=== PATIENT | female | born 1975 | race African-American/Black ===

== ENCOUNTER 2017-12-27 04:19 | Emergency (ER) | payer BC ==
[2017-12-27] MEDS ORDERED: HYDROcodone/Acetaminophen 5/325 mg Tablet ONE (04:34)
[2017-12-27] MEDS ORDERED: Morphine 4 MG/ML VIAL ONE (06:03)
[2017-12-27] MEDS ORDERED: Ondansetron HCl/PF 4 MG/2 ML Vial ONE (06:08)
== END 2017-12-27 07:03 | disposition short-term general hospital (02) ==
LOC: ERS 04:19
DX: N12 Tubulo-interstitial nephritis, not specified as acute or chronic (principal); B20 Human immunodeficiency virus [HIV] disease; F41.9 Anxiety disorder, unspecified; Z87.442 Personal history of urinary calculi; Z79.899 Other long term (current) drug therapy
CPT/HCPCS: 93005; 96374; 96375; J2270; J2405

== ENCOUNTER 2019-11-30 01:59 | Emergency (ER) | payer BC, MEDICARE ==
[2019-11-30 02:36] LABS: Hemoglobin 13.3 g/dL (12.0-16.0); Mean Corpuscular HGB CONC 32.7 g/dL (32.0-36.0); Mean Corpuscular Hemoglobin 28.9 pg (27.0-31.0); Mean Corpuscular Volume 88.2 fL (78.0-98.0); Mean Platelet Volume 7.8 fL (7.4-10.4); Platelet Count 212 thou/uL (130-400); RBC Distribution Width 12.8 % (11.5-14.5); Red Blood Cell (RBC) Count 4.61 mill/uL (4.20-5.40); White Blood Cell (WBC) Count 9.3 thou/uL (4.8-10.8)
[2019-11-30 02:50] LABS: ALT (SGPT) 19 U/L (8-55); AST (SGOT) 20 U/L (5-34); Albumin 4.2 g/dL (3.5-5.0); Alkaline Phosphatase 64 U/L (40-110); Anion Gap 15 mmol/L (10-20); BUN (Urea Nitrogen) 13 mg/dL (7.0-18.7); Bilirubin, Total 0.3 mg/dL (0.2-1.2); Calc. Creatinine Clearance 0 mL/min (70-130); Calcium 9.3 mg/dL (7.8-10.44); Carbon Dioxide 19 mmol/L (22-29); Chloride 106 mmol/L (98-107); Estimated GFR-MDRD 74; Globulin 4.7 g/dL (2.4-3.5); Glucose 102 mg/dL (70-105); Potassium 3.5 mmol/L (3.5-5.1); Protein, Total 8.9 g/dL (6.0-8.3); Sodium 136 mmol/L (136-145)
[2019-11-30 02:51] LABS: Band 6 % (5-11); Lymphocytes 26 % (21-51); MDiff Complete? YES; Monocytes 5 % (0-10); Neutrophil 63 % (42-75); Platelet Morphology Comment Appears Adequate
[2019-11-30 02:58] LABS: BHCG - Serum Negative (NEGATIVE); Pregs Control Background? CLEAR/WHITE (CLR/WHITE); Pregs Control Bar Appear? YES (CONTROL BAR)
--- NOTE | 2019-11-30 08:19 | CT ---
PRELIMINARY REPORT/[facility]/EMERGENCY AFTER HOURS PROCEDURE: EXAM: CT Head Without Intravenous Contrast. CLINICAL HISTORY: S/P SEIZURE TECHNIQUE: Axial computed tomography images of the head/brain without intravenous contrast. COMPARISON: None provided. FINDINGS: BRAIN: No acute intraparenchymal hemorrhage. No mass lesion. No CT evidence for acute territorial inf arct. No midline shift or extra-axial collection. VENTRICLES: No hydrocephalus. ORBITS: The orbits are unremarkable. SINUSES AND MASTOIDS: The paranasal sinuses and mastoid air cells are clear. SOFT TISSUES: No significant facial or scalp soft tissue swelling evident. No radiopaque foreign body is seen. BONES: No acute skull fracture. IMPRESSION: No acute intracranial abnormality. ELECTRONICALLY SIGNED BY: Erik Garcia MD Nov 30, 2019 3:00:14 AM CDT FINAL REPORT EMERGENT AFTER HOURS NONCONTRAST CT HEAD: HISTORY: Seizure. COMPARISON: 06/24/2018. IMPRESSION: 1. No acute intracranial abnormalities demonstrated. CT head is stable compared to prior study in 201 9. 2. Findings are in agreement with preliminary report by [facility]. Transcribed Date/Time: 11/30/2019 8:56 AM
--- NOTE | 2019-11-30 08:22 | CT ---
PRELIMINARY REPORT/[facility]/EMERGENCY AFTER HOURS PROCEDURE: EXAM: CT CERVICAL SPINE WO CON HISTORY: S/P SEIZURE; NECK PAIN COMPARISON: None FINDINGS: No acute displaced fracture or subluxation of the cervical spine. Straightening of the norm al cervical lordosis. Mild degenerative changes of the mid cervical spine. No acute abnormality of the soft tissues. IMPRESSION: No acute osseous abnormality of cervical spine. Straightening of the normal cervical lord osis, which can be seen with muscle spasm or immobilization. ELECTRONICALLY SIGNED BY: Erik Garcia MD Nov 30, 2019 3:03:06 AM CDT FINAL REPORT EMERGENT AFTER HOURS NONCONTRAST CT CERVICAL SPINE: HISTORY: Neck pain after seizure. COMPARISON: 06/24/2017 TECHNIQUE: Contiguous axial CT images are obtained through the cervical spine from skull base to the T2 level. S agittal and coronal reformatted images are provided. IMPRESSION: 1. Straightening of the normal cervical lordotic curvature which may be related to muscle spasm or po sitioning. 2. Stable mild degenerative changes in the cervical spine. 3. No fracture or subluxation involving the cervical spine. 4. CT cervical spine is stable compared to prior study in 2019. 5. Findings are in agreement with preliminary report by [facility]. Transcribed Date/Time: 11/30/2019 8:59 AM
== END 2019-11-30 03:19 | disposition home or self-care (01) ==
LOC: ERS 01:59
DX: R56.9 Unspecified convulsions (principal); B20 Human immunodeficiency virus [HIV] disease; F41.9 Anxiety disorder, unspecified; F17.210 Nicotine dependence, cigarettes, uncomplicated; Z79.899 Other long term (current) drug therapy
CPT/HCPCS: 36415; 36416; 70450; 72125; 80053; 80185; 84703; 85025

== ENCOUNTER 2023-04-08 17:55 | Inpatient (IN) | payer OTHER, SELFPAY ==
[2023-04-08] MEDS ORDERED: HYDROcodone/Acetaminophen 10/325 mg Tablet PO PRN (20:06)
[2023-04-08] MEDS ORDERED: Sodium Chloride 0.9% 1,000 ML IV SCH (20:15)
[2023-04-08 20:51] LABS: Hematocrit 31.9 % (36.0-47.0); Hemoglobin 10.2 g/dL (12.0-16.0)
[2023-04-08] MEDS ORDERED: cefTRIAXone\\ROCEPHIN 2 GM in Sodium Chloride 0.9% 100 ML IVPB SCH (21:00)
[2023-04-08] MEDS: Mirtazapine 30 MG TAB PO SCH (21:56)
[2023-04-08] MEDS: ALPRAZolam 1 MG TAB PO SCH (21:56)
[2023-04-08] MEDS: Pantoprazole 40 MG VIAL IVP SCH (21:56)
[2023-04-08] MEDS: Sodium Chloride 0.9% 1,000 ML IV SCH (22:03)
[2023-04-09 00:20] VITALS: BMI 23.0
[2023-04-09 02:58] LABS: Hematocrit 29.3 % (36.0-47.0); Hemoglobin 9.3 g/dL (12.0-16.0)
[2023-04-09] MEDS: Sodium Chloride 0.9% 1,000 ML IV SCH ×3 (05:39→20:40)
[2023-04-09 08:26] LABS: Hematocrit 30.4 % (36.0-47.0); Manual Diff?? YES; Mean Corpuscular HGB CONC 32.9 g/dL (32.0-36.0); Mean Corpuscular Hemoglobin 29.1 pg (27.0-31.0); Mean Corpuscular Volume 88.4 fl (78.0-98.0); Mean Platelet Volume 10.2 fL (7.4-10.4); Platelet Count 138 10x3/uL (130-400); RBC Distribution Width 14.5 % (11.5-14.5); Red Blood Cell (RBC) Count 3.44 mill/uL (4.20-5.40); White Blood Cell (WBC) Count 5.3 10x3/uL (4.8-10.8)
[2023-04-09 08:38] LABS: Delete Auto Diff?? YES
[2023-04-09 08:50] LABS: Phosphorus 2.9 mg/dL (2.3-4.7)
[2023-04-09 08:56] LABS: ALT (SGPT) 45 U/L (8-55); AST (SGOT) 72 U/L (5-34); Albumin 3.3 g/dL (3.5-5.0); Alkaline Phosphatase 186 U/L (40-110); Anion Gap 12 mmol/L (10-20); BUN (Urea Nitrogen) 13 mg/dL (7.0-18.7); Bilirubin, Total 0.3 mg/dL (0.2-1.2); Calc. Creatinine Clearance 75 mL/min (70-130); Calcium 8.4 mg/dL (7.8-10.44); Carbon Dioxide 21 mmol/L (22-29); Chloride 113 mmol/L (98-107); Estimated GFR 71; Globulin 4.7 g/dL (2.4-3.5); Glucose 91 mg/dL (70-105); Magnesium 1.9 mg/dL (1.6-2.6); Potassium 3.7 mmol/L (3.5-5.1); Sodium 142 mmol/L (136-145)
[2023-04-09] MEDS ORDERED: FLU VACC QS2023-24(6MOS UP)/PF 60 MCG/0.5 ML SYRINGE IM ONE (09:00)
[2023-04-09 09:25] LABS: Band 8 % (5-11); Elliptocytes SLIGHT = 2-5 cells HPF (0-1); Eosinophils 1 % (0-10); Large Platelets 9.9 % (0-5); Lymphocytes 4 % (21-51); Monocytes 5 % (0-10); Neutrophil 82 % (42-75); Platelet Adequacy Comment Platelets Normal; Poikilocytosis SLIGHT = 6-15 cells HPF (0-5); RBC Morphology Within Normal Limits; Total Cell Count 101
[2023-04-09] MEDS ORDERED: ALPRAZolam 1 MG TAB PO SCH (09:30)
[2023-04-09] MEDS: Citalopram 20 MG TAB PO SCH (09:58)
[2023-04-09] MEDS: ALPRAZolam 1 MG TAB PO SCH ×2 (10:02→20:40)
[2023-04-09] MEDS: Morphine 4 MG/ML VIAL SLOW IVP PRN ×2 (10:40→19:24)
[2023-04-09] MEDS: Pantoprazole 40 MG VIAL IVP SCH ×2 (10:40→20:40)
[2023-04-09 17:07] LABS: Hematocrit 29.7 % (36.0-47.0); Hemoglobin 9.6 g/dL (12.0-16.0)
[2023-04-09] MEDS: Mirtazapine 30 MG TAB PO SCH (20:40)
[2023-04-09] MEDS: Ondansetron ODT 4 MG TAB PO PRN (20:40)
[2023-04-10] MEDS: Sodium Chloride 0.9% 1,000 ML IV SCH ×4 (03:53→18:21)
[2023-04-10] MEDS: Morphine 4 MG/ML VIAL SLOW IVP PRN ×2 (03:57→14:15)
[2023-04-10] MEDS ORDERED: Acetaminophen 325 MG TAB PO PRN (04:49)
[2023-04-10 08:13] LABS: Hematocrit 29.8 % (36.0-47.0); Hemoglobin 9.5 g/dL (12.0-16.0); Manual Diff?? YES; Mean Corpuscular HGB CONC 31.9 g/dL (32.0-36.0); Mean Corpuscular Hemoglobin 28.4 pg (27.0-31.0); Mean Corpuscular Volume 89.2 fl (78.0-98.0); Mean Platelet Volume 10.4 fL (7.4-10.4); Platelet Count 132 10x3/uL (130-400); RBC Distribution Width 13.8 % (11.5-14.5); Red Blood Cell (RBC) Count 3.34 mill/uL (4.20-5.40); White Blood Cell (WBC) Count 4.2 10x3/uL (4.8-10.8)
[2023-04-10 08:18] LABS: Delete Auto Diff?? YES
[2023-04-10 08:41] LABS: Anion Gap 12 mmol/L (10-20); BUN (Urea Nitrogen) 8 mg/dL (7.0-18.7); Calc. Creatinine Clearance 90 mL/min (70-130); Calcium 8.3 mg/dL (7.8-10.44); Carbon Dioxide 21 mmol/L (22-29); Chloride 109 mmol/L (98-107); Estimated GFR 89; Glucose 80 mg/dL (70-105); Potassium 3.4 mmol/L (3.5-5.1); Sodium 139 mmol/L (136-145)
[2023-04-10 08:45] LABS: Band 3 % (5-11); Eosinophils 1 % (0-10); Lymphocytes 14 % (21-51); Monocytes 11 % (0-10); Neutrophil 71 % (42-75); Platelet Adequacy Comment Platelets Normal; RBC Morphology Within Normal Limits; Total Cell Count 100
[2023-04-10] MEDS: ALPRAZolam 1 MG TAB PO SCH ×2 (09:03→21:03)
[2023-04-10] MEDS: Citalopram 20 MG TAB PO SCH (09:03)
[2023-04-10] MEDS: Pantoprazole 40 MG VIAL IVP SCH ×2 (09:04→21:03)
[2023-04-10] MEDS: Ondansetron ODT 4 MG TAB PO PRN (10:14)
[2023-04-10] MEDS ORDERED: Sodium Chloride 0.9% 1,000 ML IV SCH (11:15)
[2023-04-10] MEDS ORDERED: Ondansetron HCl/PF 8 MG in Sodium Chloride 0.9% 50 ML IVPB SCH (11:15)
[2023-04-10] MEDS ORDERED: Lidocaine 2% Viscous Solution 20 ML, Aluminum & Magnesium Hydroxide 30 ML, Donnatal Eli... SSW SCH (13:45)
[2023-04-10 16:15] LABS: Absolute CD4 80 /uL (359-1519); Total Lymphocyte 19 % (Not Estab.); WBC Total Count 5.3 x10E3/uL (3.4-10.8)
[2023-04-10] MEDS: HYDROcodone/Acetaminophen 10/325 mg Tablet PO SCH (18:20)
[2023-04-10] MEDS ORDERED: Piperacillin/Tazobactam 3.375 GM in Sodium Chloride 0.9% 100 ML IVPB SCH ×2 (20:30→21:00)
[2023-04-10] MEDS: Ondansetron PF 4 MG/2 ML Vial IVP PRN (21:03)
[2023-04-10] MEDS: Morphine 2 MG/ML VIAL SLOW IVP PRN (21:03)
[2023-04-10] MEDS: Mirtazapine 30 MG TAB PO SCH (21:03)
[2023-04-11] MEDS: HYDROcodone/Acetaminophen 10/325 mg Tablet PO SCH ×2 (01:57→09:35)
[2023-04-11] MEDS: Piperacillin/Tazobactam 3.375 GM in Sodium Chloride 0.9% 100 ML IVPB SCH ×2 (01:58→09:34)
[2023-04-11] MEDS: Sodium Chloride 0.9% 1,000 ML IV SCH ×2 (01:58→09:34)
[2023-04-11] MEDS: Ondansetron PF 4 MG/2 ML Vial IVP PRN ×2 (03:30→16:34)
[2023-04-11] MEDS: Morphine 2 MG/ML VIAL SLOW IVP PRN ×3 (03:30→16:33)
[2023-04-11 04:22] LABS: Hematocrit 29.3 % (36.0-47.0); Hemoglobin 9.6 g/dL (12.0-16.0); Manual Diff?? YES; Mean Corpuscular HGB CONC 32.8 g/dL (32.0-36.0); Mean Corpuscular Hemoglobin 28.7 pg (27.0-31.0); Mean Corpuscular Volume 87.7 fl (78.0-98.0); Mean Platelet Volume 10.3 fL (7.4-10.4); Platelet Count 126 10x3/uL (130-400); RBC Distribution Width 13.6 % (11.5-14.5); Red Blood Cell (RBC) Count 3.34 mill/uL (4.20-5.40)
[2023-04-11 04:39] LABS: Delete Auto Diff?? YES
[2023-04-11 05:00] LABS: Anion Gap 10 mmol/L (10-20); BUN (Urea Nitrogen) 12 mg/dL (7.0-18.7); Calc. Creatinine Clearance 74 mL/min (70-130); Calcium 8.3 mg/dL (7.8-10.44); Carbon Dioxide 24 mmol/L (22-29); Chloride 112 mmol/L (98-107); Estimated GFR 70; Glucose 101 mg/dL (70-105); Potassium 3.8 mmol/L (3.5-5.1); Sodium 142 mmol/L (136-145)
[2023-04-11 05:30] LABS: Band 6 % (5-11); CellaVision Operator ID LAB.GE; Large Platelets 15.2 % (0-5); Lymphocytes 24 % (21-51); Monocytes 15 % (0-10); Neutrophil 49 % (42-75); Platelet Adequacy Comment Platelets Decreased; Polychromasia SLIGHT = 2-3 cells HPF (0-2); Reactive Lymphocytes 6 % (0-10); Smudge Cells 78.8 %; Total Cell Count 33
[2023-04-11] MEDS: Pantoprazole 40 MG VIAL IVP SCH (09:35)
[2023-04-11] MEDS: Citalopram 20 MG TAB PO SCH (09:37)
[2023-04-11] MEDS: ALPRAZolam 1 MG TAB PO SCH (09:37)
[2023-04-11] MEDS: Ondansetron ODT 4 MG TAB PO PRN (12:40)
[2023-04-11 16:54] VITALS: BP 139/84; TEMP 97.9
[2023-04-11 17:37] LABS: LOG10 HIV-1 RNA 6.017 (.)
[2023-04-13 07:42] LABS: Reference Lab Name LABCORP
== END 2023-04-11 17:20 | disposition home or self-care (01) | DRG 392 ==
LOC: 2NO 19:26 → OBSVTOIN 04-09 13:55
PROVIDERS: ADMIT Family Medicine; ATTEND Family Medicine
DX: K52.9 Noninfective gastroenteritis and colitis, unspecified (principal); N39.0 Urinary tract infection, site not specified; K92.2 Gastrointestinal hemorrhage, unspecified; E86.0 Dehydration; Z21 Asymptomatic human immunodeficiency virus [HIV] infection status; F41.9 Anxiety disorder, unspecified; F31.9 Bipolar disorder, unspecified; G89.29 Other chronic pain; M54.9 Dorsalgia, unspecified; Z88.5 Allergy status to narcotic agent; Z79.899 Other long term (current) drug therapy; Z90.710 Acquired absence of both cervix and uterus; Z90.49 Acquired absence of other specified parts of digestive tract
CPT/HCPCS: 36415; 74176; 80048; 80053; 83735; 84100; 84145; 84443; 84702; 85025; 86361; 87536; 87633; 96374; 96375; 96376; C9113; G0378; J0696; J2270; J2272; J2405; J2543; J3490; J7050; Q0162

== ENCOUNTER 2023-11-15 04:54 | Inpatient (IN) | payer BC ==
[2023-11-15 10:19] VITALS: BMI 25.7
[2023-11-15] MEDS ORDERED: Acetaminophen 650 MG Suppository PR PRN (10:36)
[2023-11-15] MEDS: Fluconazole In NaCl,Iso-Osm 400 MG in Premix 1 BAG IVPB SCH (11:47)
[2023-11-15] MEDS: Pantoprazole 40 MG VIAL IVP SCH (11:48)
[2023-11-15] MEDS: Ondansetron PF 4 MG/2 ML Vial IVP SCH (14:15)
[2023-11-15] MEDS: Lidocaine 2% Viscous Solution 20 ML, Aluminum & Magnesium Hydroxide 30 ML, Donnatal Eli... SSW SCH (17:07)
[2023-11-15] MEDS: Morphine 4 MG/ML VIAL SLOW IVP PRN (17:08)
[2023-11-15] MEDS: ALPRAZolam 1 MG TAB PO PRN (20:06)
[2023-11-15] MEDS: levETIRAcetam 500 MG TAB PO SCH (20:06)
[2023-11-16] MEDS: Acetaminophen 325 MG TAB PO PRN (00:21)
[2023-11-16 04:56] LABS: #Basophils Less than 0.03 10x3/uL (0.0-0.2); %Basophils 0.3 % (0.0-1.0); %Eosinophils 2.3 % (0.0-10.0); %Lymphocytes 39.4 % (21.0-51.0); %Monocytes 12.2 % (0.0-10.0); %Neutrophils 45.5 % (42.0-75.0); Hematocrit 30.7 % (36.0-47.0); Hemoglobin 9.7 g/dL (12.0-16.0); Mean Corpuscular HGB CONC 31.6 g/dL (32.0-36.0); Mean Corpuscular Hemoglobin 28.6 pg (27.0-31.0); Mean Corpuscular Volume 90.6 fL (78.0-98.0); Mean Platelet Volume 10.6 fL (7.4-10.4); Platelet Count 142 10x3/uL (130-400); RBC Distribution Width 13.2 % (11.5-14.5); Red Blood Cell (RBC) Count 3.39 mill/uL (4.20-5.40)
[2023-11-16 05:49] LABS: Anion Gap 12 mmol/L (10-20); BUN (Urea Nitrogen) 9 mg/dL (7.0-18.7); Calc. Creatinine Clearance 94 mL/min (70-130); Calcium 8.3 mg/dL (7.8-10.44); Carbon Dioxide 22 mmol/L (22-29); Chloride 111 mmol/L (98-107); Estimated GFR 92; Glucose 77 mg/dL (70-105); Potassium 3.1 mmol/L (3.5-5.1); Sodium 142 mmol/L (136-145)
[2023-11-16] MEDS ORDERED: RILPIVIRINE PO SCH (08:00)
[2023-11-16] MEDS ORDERED: EMTRICITA PO SCH (08:00)
[2023-11-16] MEDS ORDERED: TENOF DF PO SCH (08:00)
[2023-11-16] MEDS: Fluconazole In NaCl,Iso-Osm 400 MG in Premix 1 BAG IVPB SCH (08:32)
[2023-11-16] MEDS: Enoxaparin 40 MG (0.4 mL) SYRINGE SC SCH (08:33)
[2023-11-16] MEDS: Pantoprazole 40 MG VIAL IVP SCH (08:34)
[2023-11-16] MEDS: Potassium Chloride 20 MEQ in Premix 1 BAG IVPB SCH (11:21)
[2023-11-16 11:40] VITALS: BMI 25.7
[2023-11-16 15:15] LABS: %CD4 (Helper/Inducer) 8.3 % (30.8-58.5); Absolute CD4 158 /uL (359-1519); Lymphocytes/Gated Cell Count 1.9 x10E3/uL (0.7-3.1); Total Lymphocyte 36 % (Not Estab.); WBC Total Count 5.2 x10E3/uL (3.4-10.8)
[2023-11-16] MEDS: Ondansetron PF 4 MG/2 ML Vial IVP PRN (20:02)
[2023-11-16 21:45] LABS: Influenza A by NAA Not Detected (NotDetected); Influenza B by NAA Not Detected (NotDetected); SARS-CoV-2 NAA Rapid Test Not Detected (NotDetected)
[2023-11-16] MEDS: Guaifenesin DM 100-10/5 ML UDCUP PO PRN (23:34)
[2023-11-16] MEDS: Senokot S 8.6-50 MG TAB PO SCH (23:34)
[2023-11-17 05:03] LABS: Hematocrit 28.9 % (36.0-47.0); Hemoglobin 9.6 g/dL (12.0-16.0); Mean Corpuscular HGB CONC 33.2 g/dL (32.0-36.0); Mean Corpuscular Volume 87.3 fL (78.0-98.0); Mean Platelet Volume 10.6 fL (7.4-10.4); Platelet Count 137 10x3/uL (130-400); Red Blood Cell (RBC) Count 3.31 mill/uL (4.20-5.40)
[2023-11-17 05:11] LABS: Anion Gap 13 mmol/L (10-20); BUN (Urea Nitrogen) 9 mg/dL (7.0-18.7); Calc. Creatinine Clearance 90 mL/min (70-130); Calcium 8.4 mg/dL (7.8-10.44); Carbon Dioxide 23 mmol/L (22-29); Chloride 110 mmol/L (98-107); Estimated GFR 87; Glucose 90 mg/dL (70-105); Potassium 3.5 mmol/L (3.5-5.1); Sodium 142 mmol/L (136-145)
[2023-11-17 06:05] LABS: Anisocytosis MARKED = >30 cells HPF (0-5); Band 9 % (5-11); Large Platelets 7.9 % (0-5); Lymphocytes 29 % (21-51); Microcytosis MODERATE=15-30 cells HPF (0-5); Monocytes 3 % (0-10); Neutrophil 58 % (42-75); Ovalocytes SLIGHT = 2-5 cells HPF (0-1); Platelet Adequacy Comment Platelets Normal; Poikilocytosis MODERATE=16-30 cells HPF (0-5); Polychromasia MARKED = >4 cells HPF (0-2); Reactive Lymphocytes 1 % (0-10)
[2023-11-17] MEDS: Senokot S 8.6-50 MG TAB PO SCH (08:53)
[2023-11-17] MEDS: Metoclopramide HCl 10 MG (2 mL) VIAL IVP SCH (10:39)
[2023-11-17 14:31] LABS: Ref Lab Test Ordered HIV resistance panel; Reference Lab Name LABCORP
[2023-11-17 16:37] LABS: LOG10 HIV-1 RNA 6.072 (.)
[2023-11-17] MEDS: Micafungin 100 MG in Sodium Chloride 0.9% 100 ML IVPB SCH (16:42)
[2023-11-17] MEDS: Pantoprazole 40 MG VIAL IVP SCH (20:18)
[2023-11-18 05:10] LABS: #Basophils Less than 0.03 10x3/uL (0.0-0.2); %Basophils 0.2 % (0.0-1.0); %Eosinophils 2.8 % (0.0-10.0); %Lymphocytes 44.4 % (21.0-51.0); %Monocytes 7.4 % (0.0-10.0); Hematocrit 32.4 % (36.0-47.0); Hemoglobin 10.4 g/dL (12.0-16.0); Mean Corpuscular HGB CONC 32.1 g/dL (32.0-36.0); Mean Corpuscular Hemoglobin 28.7 pg (27.0-31.0); Mean Corpuscular Volume 89.5 fL (78.0-98.0); Mean Platelet Volume 9.7 fL (7.4-10.4); Platelet Count 137 10x3/uL (130-400); RBC Distribution Width 13.1 % (11.5-14.5); Red Blood Cell (RBC) Count 3.62 mill/uL (4.20-5.40)
[2023-11-18 05:30] LABS: Anion Gap 13 mmol/L (10-20); BUN (Urea Nitrogen) 6 mg/dL (7.0-18.7); Calc. Creatinine Clearance 89 mL/min (70-130); Calcium 8.5 mg/dL (7.8-10.44); Carbon Dioxide 25 mmol/L (22-29); Chloride 109 mmol/L (98-107); Estimated GFR 86; Glucose 89 mg/dL (70-105); Iron 30 ug/dL (50-170); Iron Binding Capacity, Total 183 mcg/dL (265-497); Potassium 3.6 mmol/L (3.5-5.1); Sodium 143 mmol/L (136-145)
[2023-11-18] MEDS: Morphine 2 MG/ML VIAL SLOW IVP PRN (21:10)
[2023-11-19] MEDS ORDERED: Aluminum & Magnesium Hydroxide 60 ML, diphenhydrAMINE 150 MG, Lidocaine 2% Viscous Solu... SSW SCH (02:15)
[2023-11-19] MEDS: MAGIC MOUTH WASH W/NYSTATIN SUSP 10 ML UDCUP SSW SCH (02:30)
[2023-11-19 05:37] LABS: #Basophils Less than 0.03 10x3/uL (0.0-0.2); %Basophils 0.3 % (0.0-1.0); %Eosinophils 1.4 % (0.0-10.0); %Lymphocytes 45.5 % (21.0-51.0); %Monocytes 9.4 % (0.0-10.0); %Neutrophils 43.1 % (42.0-75.0); Hematocrit 32.1 % (36.0-47.0); Hemoglobin 10.2 g/dL (12.0-16.0); Mean Corpuscular HGB CONC 31.8 g/dL (32.0-36.0); Mean Corpuscular Hemoglobin 28.7 pg (27.0-31.0); Mean Corpuscular Volume 90.2 fL (78.0-98.0); Mean Platelet Volume 10.2 fL (7.4-10.4); Platelet Count 132 10x3/uL (130-400); RBC Distribution Width 13.2 % (11.5-14.5); Red Blood Cell (RBC) Count 3.56 mill/uL (4.20-5.40)
[2023-11-19 06:00] LABS: Anion Gap 12 mmol/L (10-20); BUN (Urea Nitrogen) 7 mg/dL (7.0-18.7); Calc. Creatinine Clearance 81 mL/min (70-130); Calcium 8.7 mg/dL (7.8-10.44); Carbon Dioxide 27 mmol/L (22-29); Chloride 107 mmol/L (98-107); Estimated GFR 77; Glucose 91 mg/dL (70-105); Potassium 3.5 mmol/L (3.5-5.1); Sodium 142 mmol/L (136-145)
[2023-11-19] MEDS ORDERED: PROPOFOL 20 ML ONE (10:17)
[2023-11-19] MEDS ORDERED: Lidocaine 1% PF 5 ML VIAL ONE (10:17)
[2023-11-19] MEDS ORDERED: Aluminum & Magnesium Hydroxide 60 ML, diphenhydrAMINE 150 MG, Lidocaine 2% Viscous Solu... SSW PRN (15:43)
[2023-11-19] MEDS ORDERED: Benzocaine/Menthol 1 LOZ LOZ PO PRN (15:44)
[2023-11-19] MEDS ORDERED: Bisacodyl 5 MG TAB PO PRN (15:45)
[2023-11-19] MEDS: Polyethylene Glycol 3350 17 GM Packet PO SCH (16:10)
[2023-11-19] MEDS: Nystatin 500,000 UNITS/5 ML UDCUP SSW SCH (16:10)
[2023-11-19] MEDS: Bisacodyl 10 MG SUPP PR PRN (17:16)
[2023-11-19] MEDS: Milk Of Magnesia 30 ML UDCUP PO PRN (17:16)
[2023-11-19] MEDS ORDERED: Albuterol 2.5 MG (3 mL) NEB NEB PRN (18:05)
[2023-11-19] MEDS ORDERED: tiZANidine HCl 4 MG TAB PO PRN (18:05)
[2023-11-19] MEDS: Lidocaine 2% Viscous Solution 20 ML, Aluminum & Magnesium Hydroxide 30 ML, Donnatal Eli... SSW SCH (19:16)
[2023-11-19] MEDS: Potassium Bicarbonate/Cit Ac 20 MEQ TAB PO SCH (19:18)
[2023-11-19] MEDS: Metoclopramide HCl 10 MG (2 mL) VIAL IVP SCH (19:39)
[2023-11-19 19:46] LABS: ALT (SGPT) 43 U/L (8-55); AST (SGOT) 37 U/L (5-34); Alkaline Phosphatase 278 U/L (40-110); Bilirubin, Direct 0.2 mg/dL (0.1-0.3); Bilirubin, Total 0.2 mg/dL (0.2-1.2); Lipase 33 U/L (8-78); Magnesium 1.7 mg/dL (1.6-2.6)
[2023-11-19] MEDS: Albuterol 2.5 MG (3 mL) NEB NEB SCH (20:26)
[2023-11-19] MEDS: Loratadine 10 MG TAB PO SCH (20:34)
[2023-11-20 05:08] LABS: Anion Gap 10 mmol/L (10-20); BUN (Urea Nitrogen) 7 mg/dL (7.0-18.7); Calc. Creatinine Clearance 82 mL/min (70-130); Calcium 8.6 mg/dL (7.8-10.44); Carbon Dioxide 31 mmol/L (22-29); Chloride 105 mmol/L (98-107); Estimated GFR 78; Glucose 92 mg/dL (70-105); Potassium 3.9 mmol/L (3.5-5.1); Sodium 142 mmol/L (136-145)
[2023-11-20 05:10] LABS: ALT (SGPT) 37 U/L (8-55); AST (SGOT) 35 U/L (5-34); Alkaline Phosphatase 246 U/L (40-110); Bilirubin, Direct 0.1 mg/dL (0.1-0.3); Bilirubin, Total 0.2 mg/dL (0.2-1.2); Lipase 37 U/L (8-78); Protein, Total 8.1 g/dL (6.0-8.3)
[2023-11-20 05:32] LABS: Hemoglobin 9.4 g/dL (12.0-16.0); Mean Corpuscular HGB CONC 31.3 g/dL (32.0-36.0); Mean Corpuscular Hemoglobin 28.4 pg (27.0-31.0); Mean Corpuscular Volume 90.6 fL (78.0-98.0); Mean Platelet Volume 10.2 fL (7.4-10.4); Platelet Count 132 10x3/uL (130-400); RBC Distribution Width 13.1 % (11.5-14.5); Red Blood Cell (RBC) Count 3.31 mill/uL (4.20-5.40)
[2023-11-20 06:30] LABS: Anisocytosis SLIGHT = 6-15 cells HPF (0-5); Band 3 % (5-11); Large Platelets 7.7 % (0-5); Lymphocytes 33 % (21-51); Macrocytosis SLIGHT = 6-15 cells HPF (0-5); Monocytes 8 % (0-10); Neutrophil 56 % (42-75); Platelet Adequacy Comment Platelets Normal; Polychromasia SLIGHT = 2-3 cells HPF (0-2); Smudge Cells 33.3 %; Tear Drops SLIGHT = 2-5 cells HPF (0-1)
[2023-11-20] MEDS: Polyethylene Glycol 3350 17 GM Packet PO SCH (09:55)
[2023-11-20] MEDS ORDERED: Simethicone Chewable 80 MG TAB PO PRN (17:09)
[2023-11-20] MEDS ORDERED: Mag-Al Plus 1200/1200/120 MG (30 mL) UDCUP PO PRN (17:09)
[2023-11-20] MEDS: Lactated Ringer's 1,000 ML IV SCH (17:35)
[2023-11-20] MEDS: levETIRAcetam 500 MG (5 mL) VIAL SLOW IVP SCH (20:18)
[2023-11-20] MEDS: Sucralfate 1 GM TAB PO SCH (20:18)
[2023-11-21 05:05] LABS: #Basophils Less than 0.03 10x3/uL (0.0-0.2); %Eosinophils 2.3 % (0.0-10.0); %Lymphocytes 48.5 % (21.0-51.0); %Monocytes 8.6 % (0.0-10.0); %Neutrophils 40.3 % (42.0-75.0); Hematocrit 29.6 % (36.0-47.0); Hemoglobin 9.4 g/dL (12.0-16.0); Mean Corpuscular HGB CONC 31.8 g/dL (32.0-36.0); Mean Corpuscular Hemoglobin 28.6 pg (27.0-31.0); Mean Platelet Volume 10.2 fL (7.4-10.4); Platelet Count 124 10x3/uL (130-400); RBC Distribution Width 13.2 % (11.5-14.5); Red Blood Cell (RBC) Count 3.29 mill/uL (4.20-5.40)
[2023-11-21 05:08] LABS: Anion Gap 10 mmol/L (10-20); BUN (Urea Nitrogen) 10 mg/dL (7.0-18.7); Calc. Creatinine Clearance 92 mL/min (70-130); Calcium 8.6 mg/dL (7.8-10.44); Carbon Dioxide 29 mmol/L (22-29); Chloride 106 mmol/L (98-107); Estimated GFR 89; Glucose 88 mg/dL (70-105); Potassium 3.9 mmol/L (3.5-5.1); Sodium 141 mmol/L (136-145)
[2023-11-21 09:15] LABS: ALT (SGPT) 29 U/L (8-55); AST (SGOT) 31 U/L (5-34); Albumin 2.9 g/dL (3.5-5.0); Alkaline Phosphatase 210 U/L (40-110); Bilirubin, Direct 0.1 mg/dL (0.1-0.3); Bilirubin, Total 0.2 mg/dL (0.2-1.2); Protein, Total 7.9 g/dL (6.0-8.3)
[2023-11-21] MEDS ORDERED: GASTROGRAFIN 30 ML BOT ONE (09:17)
[2023-11-21] MEDS ORDERED: Polyethylene Glycol 3350 17 GM Packet PO PRN (10:52)
[2023-11-21] MEDS ORDERED: Senokot S 8.6-50 MG TAB PO PRN (10:52)
[2023-11-21 11:49] LABS: Phosphorus 3.5 mg/dL (2.3-4.7)
[2023-11-21 12:12] LABS: Free T4 (Free Thyroxine) 0.99 ng/dL (0.70-1.48); Thyroid Stimulating Hormone 0.3685 uIU/mL (0.35-4.94)
[2023-11-21] MEDS: Thiamine HCl 200 MG/2 ML VIAL SLOW IVP SCH (12:29)
[2023-11-21] MEDS: Morphine 2 MG/ML VIAL SLOW IVP PRN (12:30)
[2023-11-21] MEDS: D5 1/2 NS w/20 mEq KCL 1,000 ML IV SCH (12:31)
[2023-11-21] MEDS ORDERED: HYDROcodone/Acetaminophen 5/325 mg Tablet PO PRN ×2 (21:22)
[2023-11-21] MEDS: levETIRAcetam 500 MG TAB PO SCH (21:33)
[2023-11-21] MEDS: Pantoprazole DR 40 MG TAB PO SCH (21:33)
[2023-11-21] MEDS: tiZANidine HCl 4 MG TAB PO PRN (21:39)
[2023-11-21] MEDS: oxyCODONE/Acetaminophen 5 mg/325 mg Tablet PO SCH (22:10)
[2023-11-21] MEDS: Lorazepam 2 MG/ML VIAL IM SCH (22:42)
[2023-11-22 05:46] LABS: ALT (SGPT) 27 U/L (8-55); AST (SGOT) 29 U/L (5-34); Albumin 3.1 g/dL (3.5-5.0); Alkaline Phosphatase 201 U/L (40-110); Anion Gap 11 mmol/L (10-20); BUN (Urea Nitrogen) 7 mg/dL (7.0-18.7); Bilirubin, Total 0.1 mg/dL (0.2-1.2); Calc. Creatinine Clearance 88 mL/min (70-130); Calcium 9.2 mg/dL (7.8-10.44); Carbon Dioxide 29 mmol/L (22-29); Chloride 104 mmol/L (98-107); Estimated GFR 84; Globulin 5.4 g/dL (2.4-3.5); Glucose 89 mg/dL (70-105); Potassium 3.7 mmol/L (3.5-5.1); Protein, Total 8.5 g/dL (6.0-8.3); Sodium 140 mmol/L (136-145)
[2023-11-22] MEDS: MAGIC MOUTH WASH W/NYSTATIN SUSP 10 ML UDCUP SSW PRN (08:28)
[2023-11-22] MEDS ORDERED: Lidocaine 1% PF 5 ML VIAL ONE (10:48)
[2023-11-22] MEDS ORDERED: Sodium Bicarbonate 0.5 MEQ/ML SDV 10 ML ONE (10:48)
[2023-11-22] MEDS ORDERED: metroNIDAZOLE 500 MG in Premix 1 BAG IVPB SCH (15:40)
[2023-11-22] MEDS ORDERED: Clarithromycin 500 MG TAB PO SCH (15:42)
[2023-11-22] MEDS: Venlafaxine HCl XR 75 MG CAP PO SCH (17:06)
[2023-11-22 18:00] LABS: Bacteria/HPF None Seen HPF (None Seen); Bilirubin Negative (Negative); Blood, Urine Negative (Negative); Clarity Clear (Clear); Glucose, Urine (Dipstick) Normal (Negative); Ketone, Urine Negative (Negative); Leukocyte Negative Leu/uL (Negative); Nitrite Negative (Negative); Protein, Urine (Dipstick) Negative (Neg-Trace); RBC/HPF 0-3 HPF (0-3); Specific Gravity, Urine 1.008 (1.002-1.036); Squamous Epithelial None Seen HPF (0-3); Urobilinogen Normal mg/dL (Less than 2); WBC/HPF 0-3 HPF (0-3)
[2023-11-22] MEDS: Metoclopramide HCl 10 MG (2 mL) VIAL IVP SCH (20:57)
[2023-11-22] MEDS: QUEtiapine 100 MG TAB PO SCH (20:57)
[2023-11-23] MEDS ORDERED: Venlafaxine HCl XR 75 MG CAP PO SCH (09:00)
[2023-11-23] MEDS: D5 1/2 NS w/20 mEq KCL 1,000 ML IV SCH (20:46)
[2023-11-24 08:31] LABS: #Basophils Less than 0.03 10x3/uL (0.0-0.2); %Basophils 0.2 % (0.0-1.0); %Eosinophils 1.9 % (0.0-10.0); %Lymphocytes 47.2 % (21.0-51.0); %Monocytes 7.5 % (0.0-10.0); Hematocrit 31.2 % (36.0-47.0); Mean Corpuscular HGB CONC 32.1 g/dL (32.0-36.0); Mean Corpuscular Hemoglobin 28.2 pg (27.0-31.0); Mean Corpuscular Volume 88.1 fL (78.0-98.0); Mean Platelet Volume 10.3 fL (7.4-10.4); Platelet Count 153 10x3/uL (130-400); Red Blood Cell (RBC) Count 3.54 mill/uL (4.20-5.40)
[2023-11-24] MEDS: Metoclopramide 10 MG/10 ML UDCUP PO SCH (08:38)
[2023-11-24 08:51] LABS: ALT (SGPT) 30 U/L (8-55); AST (SGOT) 33 U/L (5-34); Albumin 3.1 g/dL (3.5-5.0); Alkaline Phosphatase 197 U/L (40-110); Anion Gap 12 mmol/L (10-20); BUN (Urea Nitrogen) 10 mg/dL (7.0-18.7); Bilirubin, Total 0.2 mg/dL (0.2-1.2); Calc. Creatinine Clearance 88 mL/min (70-130); Calcium 9.4 mg/dL (7.8-10.44); Carbon Dioxide 29 mmol/L (22-29); Chloride 103 mmol/L (98-107); Estimated GFR 84; Globulin 5.8 g/dL (2.4-3.5); Glucose 98 mg/dL (70-105); Potassium 4.1 mmol/L (3.5-5.1); Protein, Total 8.9 g/dL (6.0-8.3); Sodium 140 mmol/L (136-145)
[2023-11-24] MEDS ORDERED: Iopamidol-370 76% 500 ML MDV (1 ML CHARGE) ONE (11:43)
[2023-11-24] MEDS: Atovaquone 750 MG/5 ML UDCUP PO SCH (16:58)
[2023-11-24 19:18] LABS: PTT 29.1 sec (22.9-36.1); Prothrombin Time 12.9 sec (12.0-14.7)
[2023-11-24 19:19] LABS: D-Dimer Test 0.7 mcg/mL (0.27-0.43)
[2023-11-24 19:21] LABS: Troponin I Less than 0.010 ng/mL (< 0.028)
[2023-11-24] MEDS ORDERED: Communication Order-Pharmacy FS SCH (20:28)
[2023-11-24] MEDS: Pantoprazole DR 40 MG TAB PO SCH (20:34)
[2023-11-24] MEDS: levETIRAcetam 500 MG TAB PO SCH (20:34)
[2023-11-24] MEDS: Raltegravir Potassium 400 MG TAB PO SCH (20:34)
[2023-11-24] MEDS: Enoxaparin 80 MG (0.8 mL) SYRINGE SC SCH (20:44)
[2023-11-24 21:44] LABS: Hematocrit 31.6 % (36.0-47.0); Hemoglobin 10.1 g/dL (12.0-16.0); Platelet Count 166 10x3/uL (130-400)
[2023-11-24 22:39] LABS: Troponin I Less than 0.010 ng/mL (< 0.028)
[2023-11-25 04:40] LABS: #Basophils Less than 0.03 10x3/uL (0.0-0.2); %Basophils 0.4 % (0.0-1.0); %Eosinophils 1.6 % (0.0-10.0); %Lymphocytes 48.6 % (21.0-51.0); %Monocytes 9.1 % (0.0-10.0); %Neutrophils 39.9 % (42.0-75.0); Hemoglobin 10.1 g/dL (12.0-16.0); Mean Corpuscular HGB CONC 31.6 g/dL (32.0-36.0); Mean Corpuscular Hemoglobin 28.3 pg (27.0-31.0); Mean Corpuscular Volume 89.6 fL (78.0-98.0); Mean Platelet Volume 10.3 fL (7.4-10.4); Platelet Count 183 10x3/uL (130-400); Red Blood Cell (RBC) Count 3.57 mill/uL (4.20-5.40)
[2023-11-25 04:50] LABS: Amphetamine Not Detected (NotDetected); Barbiturates Screen Not Detected (NotDetected); Benzodiazepine Screen Detected (NotDetected); Cocaine Metabolite Screen Not Detected (NotDetected); Methadone Not Detected (NotDetected); Methamphetamine Not Detected (NotDetected); Opiate Screen Detected (NotDetected); Oxycodone Screen Not Detected (NotDetected); Phencyclidine (PCP) Not Detected (NotDetected); THC/Cannabinoid Screen Detected (NotDetected); Tricyclic Screen Detected (NotDetected)
[2023-11-25 04:55] LABS: ALT (SGPT) 31 U/L (8-55); AST (SGOT) 34 U/L (5-34); Albumin 3.4 g/dL (3.5-5.0); Alkaline Phosphatase 188 U/L (40-110); Anion Gap 12 mmol/L (10-20); BUN (Urea Nitrogen) 11 mg/dL (7.0-18.7); Bilirubin, Total 0.3 mg/dL (0.2-1.2); Calc. Creatinine Clearance 88 mL/min (70-130); Calcium 9.6 mg/dL (7.8-10.44); Carbon Dioxide 30 mmol/L (22-29); Chloride 103 mmol/L (98-107); Estimated GFR 84; Globulin 5.9 g/dL (2.4-3.5); Glucose 93 mg/dL (70-105); Magnesium 2.1 mg/dL (1.6-2.6); Potassium 4.1 mmol/L (3.5-5.1); Protein, Total 9.3 g/dL (6.0-8.3); Sodium 141 mmol/L (136-145)
[2023-11-25] MEDS: Emtricitabine/Tenofovir 200-300 MG TAB PO SCH (08:38)
[2023-11-25] MEDS: Fluconazole 100 MG TAB PO SCH (08:39)
[2023-11-25] MEDS: Thiamine 100 MG TAB PO SCH (08:39)
[2023-11-25 09:42] LABS: Troponin I Less than 0.010 ng/mL (< 0.028)
[2023-11-26] MEDS: Sodium Chloride 0.9% 500 ML IV SCH (05:12)
[2023-11-26 06:08] LABS: ALT (SGPT) 23 U/L (8-55); AST (SGOT) 20 U/L (5-34); Albumin 3.3 g/dL (3.5-5.0); Alkaline Phosphatase 167 U/L (40-110); Anion Gap 13 mmol/L (10-20); BUN (Urea Nitrogen) 11 mg/dL (7.0-18.7); Bilirubin, Total 0.3 mg/dL (0.2-1.2); Calc. Creatinine Clearance 69 mL/min (70-130); Carbon Dioxide 29 mmol/L (22-29); Chloride 102 mmol/L (98-107); Estimated GFR 63; Globulin 5.7 g/dL (2.4-3.5); Glucose 90 mg/dL (70-105); Potassium 4.1 mmol/L (3.5-5.1); Sodium 140 mmol/L (136-145)
[2023-11-26 06:11] LABS: #Basophils Less than 0.03 10x3/uL (0.0-0.2); %Basophils 0.4 % (0.0-1.0); %Eosinophils 1.8 % (0.0-10.0); %Lymphocytes 45.7 % (21.0-51.0); %Neutrophils 39.7 % (42.0-75.0); Hemoglobin 9.8 g/dL (12.0-16.0); Mean Corpuscular HGB CONC 31.6 g/dL (32.0-36.0); Mean Corpuscular Hemoglobin 28.5 pg (27.0-31.0); Mean Corpuscular Volume 90.1 fL (78.0-98.0); Mean Platelet Volume 10.6 fL (7.4-10.4); Platelet Count 193 10x3/uL (130-400); RBC Distribution Width 13.2 % (11.5-14.5); Red Blood Cell (RBC) Count 3.44 mill/uL (4.20-5.40)
[2023-11-26] MEDS: Lactated Ringer's 1,000 ML IV SCH (20:11)
[2023-11-26] MEDS: Pantoprazole 40 MG VIAL IVP SCH (20:12)
[2023-11-26] MEDS: levETIRAcetam 500 MG (5 mL) VIAL SLOW IVP SCH (20:12)
[2023-11-26] MEDS: Lorazepam 2 MG/ML VIAL SLOW IVP SCH (20:30)
[2023-11-26 22:15] LABS: Bacteria/HPF 4+ HPF (None Seen); Bilirubin Negative (Negative); Blood, Urine Negative (Negative); CAUTI Indications for Culture Pelvic or flank pain; Clarity Clear (Clear); Glucose, Urine (Dipstick) Normal (Negative); Ketone, Urine Negative (Negative); Leukocyte 250 Leu/uL (Negative); Nitrite Negative (Negative); Protein, Urine (Dipstick) Negative (Neg-Trace); RBC/HPF 0-3 HPF (0-3); Specific Gravity, Urine 1.015 (1.002-1.036); Squamous Epithelial 0-3 HPF (0-3); Urobilinogen Normal mg/dL (Less than 2); WBC/HPF 21-50 HPF (0-3); pH, Urine 6.5 (5.0-9.0)
[2023-11-26 22:22] LABS: Urine Culture Reflex Yes Yes
[2023-11-27 07:21] LABS: #Basophils 0.03 10x3/uL (0.0-0.2); %Basophils 0.6 % (0.0-1.0); %Eosinophils 1.4 % (0.0-10.0); %Monocytes 10.7 % (0.0-10.0); %Neutrophils 42.9 % (42.0-75.0); Hematocrit 28.8 % (36.0-47.0); Hemoglobin 9.5 g/dL (12.0-16.0); Mean Corpuscular Hemoglobin 28.7 pg (27.0-31.0); Mean Platelet Volume 10.5 fL (7.4-10.4); Platelet Count 183 10x3/uL (130-400); RBC Distribution Width 12.9 % (11.5-14.5); Red Blood Cell (RBC) Count 3.31 mill/uL (4.20-5.40)
[2023-11-27 07:52] LABS: ALT (SGPT) 19 U/L (8-55); AST (SGOT) 20 U/L (5-34); Albumin 3.1 g/dL (3.5-5.0); Alkaline Phosphatase 148 U/L (40-110); Anion Gap 11 mmol/L (10-20); BUN (Urea Nitrogen) 11 mg/dL (7.0-18.7); Bilirubin, Total 0.3 mg/dL (0.2-1.2); Calc. Creatinine Clearance 85 mL/min (70-130); Calcium 9.4 mg/dL (7.8-10.44); Carbon Dioxide 28 mmol/L (22-29); Chloride 105 mmol/L (98-107); Estimated GFR 81; Globulin 5.5 g/dL (2.4-3.5); Glucose 94 mg/dL (70-105); Lipase 82 U/L (8-78); Potassium 4.1 mmol/L (3.5-5.1); Protein, Total 8.6 g/dL (6.0-8.3); Sodium 140 mmol/L (136-145)
[2023-11-27] MEDS: Apixaban 5 MG TAB PO SCH (21:35)
[2023-11-28 06:06] LABS: #Basophils Less than 0.03 10x3/uL (0.0-0.2); %Basophils 0.5 % (0.0-1.0); %Eosinophils 2.9 % (0.0-10.0); %Lymphocytes 41.6 % (21.0-51.0); %Monocytes 10.4 % (0.0-10.0); %Neutrophils 44.1 % (42.0-75.0); Hematocrit 29.2 % (36.0-47.0); Hemoglobin 9.3 g/dL (12.0-16.0); Mean Corpuscular HGB CONC 31.8 g/dL (32.0-36.0); Mean Corpuscular Hemoglobin 28.7 pg (27.0-31.0); Mean Corpuscular Volume 90.1 fL (78.0-98.0); Mean Platelet Volume 10.3 fL (7.4-10.4); Platelet Count 201 10x3/uL (130-400); RBC Distribution Width 12.9 % (11.5-14.5); Red Blood Cell (RBC) Count 3.24 mill/uL (4.20-5.40)
[2023-11-28 06:24] LABS: ALT (SGPT) 22 U/L (8-55); AST (SGOT) 27 U/L (5-34); Albumin 3.2 g/dL (3.5-5.0); Alkaline Phosphatase 149 U/L (40-110); Anion Gap 13 mmol/L (10-20); BUN (Urea Nitrogen) 8 mg/dL (7.0-18.7); Bilirubin, Total 0.2 mg/dL (0.2-1.2); Calc. Creatinine Clearance 72 mL/min (70-130); Calcium 9.4 mg/dL (7.8-10.44); Carbon Dioxide 26 mmol/L (22-29); Chloride 106 mmol/L (98-107); Estimated GFR 66; Globulin 5.6 g/dL (2.4-3.5); Glucose 121 mg/dL (70-105); Potassium 3.8 mmol/L (3.5-5.1); Protein, Total 8.8 g/dL (6.0-8.3); Sodium 141 mmol/L (136-145)
[2023-11-29 01:02] LABS: Troponin I Less than 0.010 ng/mL (< 0.028)
[2023-11-29] MEDS: Lidocaine 2% Viscous Solution 10 ML, Aluminum & Magnesium Hydroxide 30 ML SSW SCH (01:39)
[2023-11-29 06:33] LABS: #Basophils Less than 0.03 10x3/uL (0.0-0.2); %Basophils 0.3 % (0.0-1.0); %Eosinophils 2.6 % (0.0-10.0); %Lymphocytes 44.9 % (21.0-51.0); %Neutrophils 39.9 % (42.0-75.0); Hematocrit 27.5 % (36.0-47.0); Hemoglobin 8.7 g/dL (12.0-16.0); Mean Corpuscular HGB CONC 31.6 g/dL (32.0-36.0); Mean Corpuscular Hemoglobin 28.4 pg (27.0-31.0); Mean Corpuscular Volume 89.9 fL (78.0-98.0); Platelet Count 194 10x3/uL (130-400); RBC Distribution Width 12.9 % (11.5-14.5); Red Blood Cell (RBC) Count 3.06 mill/uL (4.20-5.40)
[2023-11-29 06:59] LABS: ALT (SGPT) 25 U/L (8-55); AST (SGOT) 28 U/L (5-34); Alkaline Phosphatase 134 U/L (40-110); Anion Gap 10 mmol/L (10-20); BUN (Urea Nitrogen) 13 mg/dL (7.0-18.7); Bilirubin, Total 0.2 mg/dL (0.2-1.2); Calc. Creatinine Clearance 67 mL/min (70-130); Calcium 9.1 mg/dL (7.8-10.44); Carbon Dioxide 30 mmol/L (22-29); Chloride 105 mmol/L (98-107); Estimated GFR 61; Globulin 5.3 g/dL (2.4-3.5); Glucose 96 mg/dL (70-105); Potassium 4.3 mmol/L (3.5-5.1); Protein, Total 8.3 g/dL (6.0-8.3); Sodium 141 mmol/L (136-145)
[2023-11-29] MEDS: Promethazine HCl 12.5 MG in Sodium Chloride 0.9% 50 ML IVPB PRN (13:14)
[2023-11-30 05:13] LABS: #Basophils Less than 0.03 10x3/uL (0.0-0.2); %Basophils 0.5 % (0.0-1.0); %Eosinophils 2.7 % (0.0-10.0); %Neutrophils 45.6 % (42.0-75.0); Hematocrit 28.2 % (36.0-47.0); Hemoglobin 8.8 g/dL (12.0-16.0); Mean Corpuscular HGB CONC 31.2 g/dL (32.0-36.0); Mean Corpuscular Hemoglobin 27.5 pg (27.0-31.0); Mean Corpuscular Volume 88.1 fL (78.0-98.0); Mean Platelet Volume 10.5 fL (7.4-10.4); Platelet Count 215 10x3/uL (130-400); RBC Distribution Width 12.9 % (11.5-14.5)
[2023-11-30 05:42] LABS: ALT (SGPT) 22 U/L (8-55); AST (SGOT) 21 U/L (5-34); Albumin 3.1 g/dL (3.5-5.0); Alkaline Phosphatase 126 U/L (40-110); Anion Gap 10 mmol/L (10-20); BUN (Urea Nitrogen) 18 mg/dL (7.0-18.7); Bilirubin, Total 0.2 mg/dL (0.2-1.2); Calc. Creatinine Clearance 76 mL/min (70-130); Calcium 9.4 mg/dL (7.8-10.44); Carbon Dioxide 30 mmol/L (22-29); Chloride 104 mmol/L (98-107); Estimated GFR 70; Globulin 5.2 g/dL (2.4-3.5); Glucose 97 mg/dL (70-105); Potassium 4.1 mmol/L (3.5-5.1); Protein, Total 8.3 g/dL (6.0-8.3); Sodium 140 mmol/L (136-145)
[2023-11-30] MEDS ORDERED: Iopamidol-370 76% 500 ML MDV (1 ML CHARGE) ONE (11:47)
[2023-11-30] MEDS: Sodium Chloride 0.9% 1,000 ML IV SCH (23:08)
[2023-11-30 23:43] LABS: #Basophils Less than 0.03 10x3/uL (0.0-0.2); %Basophils 0.4 % (0.0-1.0); %Lymphocytes 41.3 % (21.0-51.0); %Monocytes 8.9 % (0.0-10.0); Hematocrit 28.9 % (36.0-47.0); Hemoglobin 9.1 g/dL (12.0-16.0); Mean Corpuscular HGB CONC 31.5 g/dL (32.0-36.0); Mean Corpuscular Hemoglobin 28.4 pg (27.0-31.0); Mean Corpuscular Volume 90.3 fL (78.0-98.0); Mean Platelet Volume 10.4 fL (7.4-10.4); Platelet Count 206 10x3/uL (130-400); RBC Distribution Width 12.9 % (11.5-14.5)
[2023-11-30 23:59] LABS: Anion Gap 15 mmol/L (10-20); BUN (Urea Nitrogen) 14 mg/dL (7.0-18.7); Calc. Creatinine Clearance 74 mL/min (70-130); Calcium 9.3 mg/dL (7.8-10.44); Carbon Dioxide 27 mmol/L (22-29); Chloride 104 mmol/L (98-107); Estimated GFR 69; Glucose 111 mg/dL (70-105); Magnesium 1.9 mg/dL (1.6-2.6); Phosphorus 3.8 mg/dL (2.3-4.7); Potassium 3.6 mmol/L (3.5-5.1); Sodium 142 mmol/L (136-145)
[2023-12-01 06:36] LABS: #Basophils Less than 0.03 10x3/uL (0.0-0.2); %Basophils 0.4 % (0.0-1.0); %Eosinophils 2.4 % (0.0-10.0); %Lymphocytes 34.2 % (21.0-51.0); %Monocytes 8.8 % (0.0-10.0); Hematocrit 26.1 % (36.0-47.0); Hemoglobin 8.2 g/dL (12.0-16.0); Mean Corpuscular HGB CONC 31.4 g/dL (32.0-36.0); Mean Corpuscular Hemoglobin 28.8 pg (27.0-31.0); Mean Corpuscular Volume 91.6 fL (78.0-98.0); Mean Platelet Volume 10.3 fL (7.4-10.4); Platelet Count 194 10x3/uL (130-400); RBC Distribution Width 12.9 % (11.5-14.5); Red Blood Cell (RBC) Count 2.85 mill/uL (4.20-5.40)
[2023-12-01 07:32] LABS: ALT (SGPT) 17 U/L (8-55); AST (SGOT) 18 U/L (5-34); Albumin 2.4 g/dL (3.5-5.0); Alkaline Phosphatase 106 U/L (40-110); Anion Gap 8 mmol/L (10-20); BUN (Urea Nitrogen) 11 mg/dL (7.0-18.7); Bilirubin, Total 0.1 mg/dL (0.2-1.2); Calc. Creatinine Clearance 99 mL/min (70-130); Calcium 7.3 mg/dL (7.8-10.44); Carbon Dioxide 24 mmol/L (22-29); Chloride 115 mmol/L (98-107); Estimated GFR 98; Globulin 4.1 g/dL (2.4-3.5); Glucose 91 mg/dL (70-105); Potassium 3.2 mmol/L (3.5-5.1); Protein, Total 6.5 g/dL (6.0-8.3); Sodium 144 mmol/L (136-145)
[2023-12-01] MEDS: Metoprolol Tartrate 25 MG TAB PO SCH (20:33)
[2023-12-02 05:13] LABS: #Basophils 0.03 10x3/uL (0.0-0.2); %Basophils 0.6 % (0.0-1.0); %Eosinophils 2.8 % (0.0-10.0); %Lymphocytes 36.9 % (21.0-51.0); %Monocytes 9.2 % (0.0-10.0); %Neutrophils 50.1 % (42.0-75.0); Hematocrit 26.4 % (36.0-47.0); Hemoglobin 8.4 g/dL (12.0-16.0); Mean Corpuscular HGB CONC 31.8 g/dL (32.0-36.0); Mean Corpuscular Hemoglobin 28.3 pg (27.0-31.0); Mean Corpuscular Volume 88.9 fL (78.0-98.0); Mean Platelet Volume 10.6 fL (7.4-10.4); Platelet Count 211 10x3/uL (130-400); Red Blood Cell (RBC) Count 2.97 mill/uL (4.20-5.40)
[2023-12-02 05:32] LABS: ALT (SGPT) 21 U/L (8-55); AST (SGOT) 24 U/L (5-34); Alkaline Phosphatase 126 U/L (40-110); Anion Gap 12 mmol/L (10-20); BUN (Urea Nitrogen) 18 mg/dL (7.0-18.7); Bilirubin, Total 0.1 mg/dL (0.2-1.2); Calc. Creatinine Clearance 71 mL/min (70-130); Calcium 9.1 mg/dL (7.8-10.44); Carbon Dioxide 29 mmol/L (22-29); Chloride 105 mmol/L (98-107); Estimated GFR 66; Globulin 5.1 g/dL (2.4-3.5); Glucose 98 mg/dL (70-105); Protein, Total 8.1 g/dL (6.0-8.3); Sodium 142 mmol/L (136-145)
[2023-12-02] MEDS: Methocarbamol 500 MG TAB PO PRN (15:55)
[2023-12-02] MEDS: HYDROcodone/Acetaminophen 5/325 mg Tablet PO PRN (17:20)
[2023-12-02] MEDS: Morphine 2 MG/ML VIAL SLOW IVP PRN (21:06)
[2023-12-03] MEDS: diphenhydrAMINE 25 MG CAP PO PRN (05:01)
[2023-12-03 05:29] LABS: #Basophils 0.04 10x3/uL (0.0-0.2); %Eosinophils 2.9 % (0.0-10.0); %Lymphocytes 39.1 % (21.0-51.0); %Monocytes 10.6 % (0.0-10.0); %Neutrophils 45.9 % (42.0-75.0); Hematocrit 26.8 % (36.0-47.0); Hemoglobin 8.3 g/dL (12.0-16.0); Mean Corpuscular Hemoglobin 28.1 pg (27.0-31.0); Mean Corpuscular Volume 90.8 fL (78.0-98.0); Mean Platelet Volume 10.4 fL (7.4-10.4); Platelet Count 217 10x3/uL (130-400); RBC Distribution Width 13.2 % (11.5-14.5); Red Blood Cell (RBC) Count 2.95 mill/uL (4.20-5.40)
[2023-12-03 05:52] LABS: ALT (SGPT) 30 U/L (8-55); AST (SGOT) 35 U/L (5-34); Albumin 3.1 g/dL (3.5-5.0); Alkaline Phosphatase 124 U/L (40-110); Anion Gap 11 mmol/L (10-20); BUN (Urea Nitrogen) 18 mg/dL (7.0-18.7); Bilirubin, Total 0.2 mg/dL (0.2-1.2); Calc. Creatinine Clearance 66 mL/min (70-130); Carbon Dioxide 30 mmol/L (22-29); Chloride 104 mmol/L (98-107); Estimated GFR 60; Globulin 5.2 g/dL (2.4-3.5); Glucose 101 mg/dL (70-105); Potassium 3.9 mmol/L (3.5-5.1); Protein, Total 8.3 g/dL (6.0-8.3); Sodium 141 mmol/L (136-145)
[2023-12-03 09:20] VITALS: BP 106/75; TEMP 98.5
[2023-12-04] MEDS ORDERED: Apixaban 5 MG TAB PO SCH (21:00)
== END 2023-12-03 09:55 | disposition home or self-care (01) | DRG 974 ==
LOC: MSONC 09:35 → OBSVTOIN 10:36
PROVIDERS: ADMIT Family Medicine; ATTEND Internal Medicine
PROC: 0DB28ZX Excision of Middle Esophagus, Via Natural or Artificial Opening Endoscopic, Diagnostic (ICD-10-PCS; principal; 2023-11-19)
PROC: 0DB68ZX Excision of Stomach, Via Natural or Artificial Opening Endoscopic, Diagnostic (ICD-10-PCS; 2023-11-19)
DX: B20 Human immunodeficiency virus [HIV] disease (principal); I26.99 Other pulmonary embolism without acute cor pulmonale; B37.81 Candidal esophagitis; E44.0 Moderate protein-calorie malnutrition; G40.909 Epilepsy, unspecified, not intractable, without status epilepticus; F41.9 Anxiety disorder, unspecified; Z88.2 Allergy status to sulfonamides; Z88.8 Allergy status to other drugs, medicaments and biological substances; Z79.899 Other long term (current) drug therapy; Z90.710 Acquired absence of both cervix and uterus; Z98.890 Other specified postprocedural states; R59.0 Localized enlarged lymph nodes; K59.00 Constipation, unspecified; J45.909 Unspecified asthma, uncomplicated; K29.50 Unspecified chronic gastritis without bleeding
CPT/HCPCS: 36415; 36416; 36569; 70450; 70490; 71045; 71275; 74018; 74176; 76705; 76937; 77001; 80048; 80053; 80076; 80306; 81001; 82728; 82977; 83540; 83550; 83690; 83735; 84100; 84439; 84443; 84481; 84484; 85025; 85379; 85610; 85730; 86361; 86850; 86900; 86901; 87040; 87077; 87086; 87186; 87536; 88305; 88342; 93005; 93010; 93306; 93970; C1751; J0780; J1450; J1650; J1953; J2060; J2248; J2272; J2405; J2470; J2550; J2704; J2765; J3411; J3480; J7030; J7120; Q9963; Q9967

== ENCOUNTER 2024-02-26 18:36 | Emergency (ER) | payer BC ==
[2024-02-26 19:21] LABS: #Basophils Less than 0.03 10x3/uL (0.0-0.2); %Basophils 0.3 % (0.0-1.0); %Eosinophils 1.1 % (0.0-10.0); %Lymphocytes 44.2 % (21.0-51.0); %Monocytes 5.7 % (0.0-10.0); %Neutrophils 48.5 % (42.0-75.0); Hematocrit 37.1 % (36.0-47.0); Hemoglobin 11.8 g/dL (12.0-16.0); Mean Corpuscular HGB CONC 31.8 g/dL (32.0-36.0); Mean Corpuscular Hemoglobin 29.1 pg (27.0-31.0); Mean Corpuscular Volume 91.4 fL (78.0-98.0); Mean Platelet Volume 10.1 fL (7.4-10.4); Platelet Count 228 10x3/uL (130-400); RBC Distribution Width 12.6 % (11.5-14.5); Red Blood Cell (RBC) Count 4.06 mill/uL (4.20-5.40)
[2024-02-26] MEDS ORDERED: Dexamethasone 10 MG/ML VIAL ONE (19:35)
[2024-02-26] MEDS ORDERED: Metoclopramide HCl 10 MG (2 mL) VIAL ONE (19:35)
[2024-02-26 19:37] LABS: Lipase 15 U/L (8-78)
[2024-02-26 19:37] LABS: Prothrombin Time 13.1 sec (12.0-14.7)
[2024-02-26 19:38] LABS: PTT 22.1 sec (22.9-36.1)
[2024-02-26 19:40] LABS: Acetaminophen Less than 10 mcg/mL (Less than 10); Alcohol Less than 10.0 mg/dL (Less than 10); Salicylate Less than 8.0 mg/dL (Less than 8.0)
[2024-02-26 19:42] LABS: ALT (SGPT) 12 U/L (8-55); AST (SGOT) 31 U/L (5-34); Albumin 3.7 g/dL (3.5-5.0); Alkaline Phosphatase 92 U/L (40-110); Anion Gap 16 mmol/L (10-20); BUN (Urea Nitrogen) 11 mg/dL (7.0-18.7); Bilirubin, Total 0.2 mg/dL (0.2-1.2); CK (CPK) 59 U/L (29-168); Calc. Creatinine Clearance 0 mL/min (70-130); Calcium 9.5 mg/dL (7.8-10.44); Carbon Dioxide 19 mmol/L (22-29); Chloride 108 mmol/L (98-107); Estimated GFR 91; Globulin 5.7 g/dL (2.4-3.5); Glucose 96 mg/dL (70-105); Potassium 3.7 mmol/L (3.5-5.1); Protein, Total 9.4 g/dL (6.0-8.3); Sodium 139 mmol/L (136-145)
[2024-02-26 19:48] LABS: Troponin I Less than 0.010 ng/mL (< 0.028)
[2024-02-26 20:14] LABS: Amphetamine Not Detected (NotDetected); Barbiturates Screen Not Detected (NotDetected); Benzodiazepine Screen Detected (NotDetected); Cocaine Metabolite Screen Not Detected (NotDetected); Methadone Not Detected (NotDetected); Methamphetamine Not Detected (NotDetected); Opiate Screen Detected (NotDetected); Oxycodone Screen Not Detected (NotDetected); Phencyclidine (PCP) Not Detected (NotDetected); THC/Cannabinoid Screen Detected (NotDetected); Tricyclic Screen Not Detected (NotDetected)
[2024-02-26 20:17] LABS: Bacteria/HPF None Seen HPF (None Seen); Bilirubin Negative (Negative); Blood, Urine Negative (Negative); CAUTI Indications for Culture Pelvic or flank pain; Clarity Clear (Clear); Glucose, Urine (Dipstick) Normal (Negative); Ketone, Urine Negative (Negative); Leukocyte 75 Leu/uL (Negative); Nitrite Negative (Negative); Protein, Urine (Dipstick) Negative (Neg-Trace); RBC/HPF 0-3 HPF (0-3); Squamous Epithelial 0-3 HPF (0-3); Urobilinogen Normal mg/dL (Less than 2); pH, Urine 5.5 (5.0-9.0)
[2024-02-26 20:19] LABS: Urine Culture Reflex Yes Yes
== END 2024-02-26 21:22 | disposition home or self-care (01) ==
LOC: ERS 18:36
DX: R51.9 Headache, unspecified (principal); F41.9 Anxiety disorder, unspecified; F19.10 Other psychoactive substance abuse, uncomplicated
CPT/HCPCS: 36415; 36416; 70450; 71045; 80053; 80306; 80307; 81001; 82550; 83690; 84484; 85025; 85610; 85730; 87086; 93005; 94760; 96374; 96375; J1100; J2765